=== PATIENT | female | born 1945 | race Caucasian/White ===

== ENCOUNTER 2018-01-13 11:54 | Emergency (ER) | payer MEDICAID, MEDICARE ==
--- NOTE | 2018-01-13 14:24 | UC ---
Sukhdeep Cordova Tenzin, scribed for Jamey Posey MD on 01/13/18 at 1238 . Ear Complaint HPI - HPI Summary HPI Summary: Pt is a 72 years old female presenting to the complaining of plugged ears since two nights ago. Pt notes that she has loss of hearing and adds that "It is mute. Pt is also complaining of numbness around left ear down her neck. Denies sore throat, runny nose, SOB, trauma to ear. Pt has a hx of rheumatoid arthritis. Pt notes that she just moved to [place] couple of months ago from [place]. - History of Current Complaint Chief Complaint: UCEar Stated Complaint: EAR PLUGGED Time Seen by Provider: 01/13/18 12:24 Hx Obtained From: Patient Onset/Duration: Still Present Severity Currently: None Pain Intensity: 0 Pain Scale Used: 0-10 Numeric Aggravating Factors: Nothing Alleviating Factors: Nothing Associated Signs/Symptoms: Positive: Hearing Loss. Negative: Trauma to Ear Related History: Seasonal Allergies - Allergies/Home Medications Allergies/Adverse Reactions: Allergies Allergy/AdvReac Type Severity Reaction Status Date / Time bupropion [From Wellbutrin] Allergy anaph Verified 01/13/18 12:17 Sulfa (Sulfonamide Allergy Rash/anaph Verified 01/13/18 12:16 Antibiotics) Home Medications: Home Medications Aspirin 81 mg CHEW TAB* 81 ng PO DAILY 01/13/18 [History Confirmed 01/13/18] Calcium Carbonate [Calcium] 500 mg PO DAILY 01/13/18 [History Confirmed 01/13/18 ] Chondroitin Sulfate A [Chondroitin Sulfate] 250 mg PO DAILY 01/13/18 [History Confirmed 01/13/18] DULoxetine CAP* [Cymbalta CAP*] 30 mg PO DAILY 01/13/18 [History Confirmed ] Diflunisal TAB* [Dolobid TAB*] 500 mg PO DAILY 01/13/18 [History Confirmed 01/13] Famotidine TAB* [Pepcid 20 MG TAB*] 20 mg PO DAILY 01/13/18 [History Confirmed 01/13/18] Glucosamine Sulfate Dipot Chlr [Glucosamine] 1,000 mg PO DAILY 01/13/18 [ History Confirmed 01/13/18] Levothyroxine TAB* [Synthroid TAB*] 50 mcg PO DAILY 01/13/18 [History Confirmed 01/13/18] Lisinopril TAB* [Prinivil TAB*] 10 mg PO DAILY 01/13/18 [History Confirmed 01/13] Magnesium Oxide [Magnesium] 400 mg PO DAILY 01/13/18 [History Confirmed 01/13/18 ] Zinc 15 mg Lozenges 15 mg PO DAILY 01/13/18 [History Confirmed 01/13/18] PMH/Surg Hx/FS Hx/Imm Hx - Additional Past Medical History Additional PMH: NEGATIVE:HTN POSITIVE: RHEUMATOID ARTHRITIS - Surgical History Surgical History: Yes Surgery Procedure, Year, and Place: spinal neck surgeries - Family History Known Family History: Positive: Cardiac Disease - Social History Alcohol Use: None Substance Use Type: None Smoking Status (MU): Former Smoker Review of Systems Constitutional: Negative Skin: Negative Eyes: Negative ENT: Other - Plugged left ear. Respiratory: Negative Cardiovascular: Negative Gastrointestinal: Negative Genitourinary: Negative Motor: Negative Neurovascular: Negative Musculoskeletal: Negative Neurological: Negative Psychological: Negative All Other Systems Reviewed And Are Negative: Yes - Comments Additional Review of Systems Comments: POSITIVE: LEFT PLUGGED EAR NEGATIVE: SORE THROAT, SOB, RUNNY NOSE. Physical Exam - Summary Physical Exam Summary: General: well-appearing, no pain distress Skin: warm, color reflects adequate perfusion, dry Head: normal Eyes: EOMI, TOÑO ENT: Left ear cerumen impaction Neck: supple, nontender Respiratory: CTA, breath sounds present Cardiovascular: RRR Abdomen: soft, nontender Bowel: present Musculoskeletal: normal, strength/ROM intact Neurological: sensory/motor intact, A&O x3 Psychological: affect/mood appropriate Triage Information Reviewed: Yes Vital Signs: Initial Vital Signs Temp 98.4 F 01/13/18 12:12 Pulse 75 01/13/18 12:12 Resp 16 01/13/18 12:12 BP 140/53 01/13/18 12:12 Pulse Ox 100 01/13/18 12:12 Vital Signs Reviewed: Yes Re-Evaluation - Re-Evaluation First Eval Re-Evaluation Time: 13:56 Change: Improved - Ear wax was taken out. Pt felt that she can hear better and the numbness has gone. Ear Complaint Course/Dx - Course Course Of Treatment: HEARING IMPROVED AND NO MORE SIDE OF HEAD NUMBNESS AFTER THE CERUMEN REMOVED. - Differential Dx/Diagnosis Provider Diagnoses: LEFT EAR CERUMEN IMPACTION Discharge - Sign-Out/Discharge Documenting (check all that apply): Discharge/Admit/Transfer - Discharge Plan Condition: Stable Disposition: HOME Patient Education Materials: Cerumen Impaction (ED) Ref[place]: [facility] [[place]] Naa Gallegos MD [Primary Care Provider] - Additional Instructions: FOLLOW UP WITH YOUR DOCTOR IF NOT COMPLETELY IMPROVED. YOU CAN USE OVER THE COUNTER EAR WAX REMOVAL PREPARATIONS SUCH DEBROX NEEDED. GET RECHECKED FOR ANY WORSENING OF YOUR CONDITION OR QUESTIONS OR CONCERNS. - Billing Disposition and Condition Condition: STABLE Disposition: Home The documentation as recorded by the Sukhdeep vargas Tenzin accurately reflects the service I personally performed and the decisions made by me, Jamey Posey MD.
== END 2018-01-13 14:03 | disposition home or self-care (01) ==
LOC: UCEAST 11:54
DX: H61.22 Impacted cerumen, left ear (principal); M06.9 Rheumatoid arthritis, unspecified; Z88.8 Allergy status to other drugs, medicaments and biological substances; Z88.2 Allergy status to sulfonamides; Z87.891 Personal history of nicotine dependence
CPT/HCPCS: 99202; G0463